=== PATIENT | female | born 1995 | race African-American/Black ===

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

== ENCOUNTER 2017-04-07 17:23 | Emergency (ER) | payer OTHER ==
[2017-04-07] MEDS ORDERED: SODIUM CHLORIDE 0.9% 500 ML IV STA (17:39)
--- NOTE | 2017-04-07 17:48 | ED ---
Abdominal Pain HPI - General Chief Complaint: Abdominal Pain Stated Complaint: Abdominal pain Time Seen by Provider: 04/07/17 17:35 Source: patient, RN notes reviewed Mode of arrival: ambulatory Limitations: no limitations - History of Present Illness Initial Comments: 21-year-old female presents emergency Department chief complaint of nausea abdominal discomfort. Patient states that she has on-and-off discomfort primarily epigastric region. Patient states that she is having normal bowel movements she's had some nausea and one episode of vomiting. Patient states her last menstrual cycle was in February she is concerned about possible she denies any vaginal bleeding or vaginal discharge. She's had no prior pregnancies. Patient reports no fever no chills denies chest pain or shortness of breath. - Related Data Previous Rx's Medication Instructions Recorded Omeprazole 40 mg PO DAILY #14 capsule. 04/07/17 Ondansetron Odt [Zofran Odt] 4 mg PO Q8HR PRN #10 tab 04/07/17 Allergies Allergy/AdvReac Type Severity Reaction Status Date / Time No Known Allergies Allergy Verified 04/07/17 17:41 Review of Systems ROS Statement: Those systems with pertinent positive or pertinent negative responses have been documented in the HPI. ROS Other: All systems not noted in ROS Statement are negative. Past Medical History Past Medical History: Asthma History of Any Multi-Drug Resistant Organisms: None Reported Past Surgical History: No Surgical Hx Reported Past Psychological History: No Psychological Hx Reported Smoking Status: Current every day smoker Past Alcohol Use History: None Reported Past Drug Use History: None Reported General Exam Limitations: no limitations General appearance: alert, in no apparent distress Head exam: Present: atraumatic, normocephalic, normal inspection Eye exam: Present: normal appearance, PERRL, EOMI. Absent: scleral icterus, conjunctival injection, periorbital swelling Neck exam: Present: normal inspection, full ROM. Absent: tenderness, meningismus, lymphadenopathy Respiratory exam: Present: normal lung sounds bilaterally. Absent: respiratory distress, wheezes, rales, rhonchi, stridor Cardiovascular Exam: Present: regular rate, normal rhythm, normal heart sounds. Absent: systolic murmur, diastolic murmur, rubs, gallop, clicks Back exam: Absent: CVA tenderness (R), CVA tenderness (L) Neurological exam: Present: alert Skin exam: Present: warm, dry, intact, normal color. 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 Patient's labwork shows mild elevated liver function though she may just have a viral illness. Patient be discharged on omeprazole for her gastritis, Zofran as needed for nausea. Patient is not and which this was a concern for patient. - Lab Data Result diagrams: 04/07/17 18:08 04/07/17 18:08 Lab Results 04/07/17 04/07/17 04/07/17 Range/Units 17:45 17:45 18:08 WBC (4.0-11.0) k/uL RBC (3.80-5.40) m/uL Hgb (11.4-16.0) gm/dL Hct (34.0-46.0) % MCV (80.0-100.0) fL MCH (25.0-35.0) pg MCHC (31.0-37.0) g/dL RDW (11.5-15.5) % Plt Count (150-450) k/uL Neutrophils % % Lymphocytes % % Monocytes % % Eosinophils % % Basophils % % Neutrophils # (1.3-7.7) k/uL Lymphocytes # (1.0-4.8) k/uL Monocytes # (0-1.0) k/uL Eosinophils # (0-0.7) k/uL Basophils # (0-0.2) k/uL Hypochromasia Microcytosis Sodium 140 (137-145) mmol/L Potassium 4.0 (3.5-5.1) mmol/L Chloride 101 (98-107) mmol/L Carbon Dioxide 24 (22-30) mmol/L Anion Gap 15 mmol/L BUN 4 L (7-17) mg/dL Creatinine 0.60 (0.52-1.04) mg/dL Est GFR (MDRD) Af Amer >60 (>60 ml/min/1.73 sqM) Est GFR (MDRD) Non-Af >60 (>60 ml/min/1.73 sqM) Glucose 99 (74-99) mg/dL Calcium 10.3 H (8.4-10.2) mg/dL Total Bilirubin 0.3 (0.2-1.3) mg/dL AST 44 H (14-36) U/L ALT 47 (9-52) U/L Alkaline Phosphatase 203 H (38-126) U/L Total Protein 8.8 H (6.3-8.2) g/dL Albumin 4.9 (3.5-5.0) g/dL Amylase 100 (30-110) U/L Lipase 125 (23-300) U/L Urine Color Colorless Urine Appearance Clear (Clear) Urine pH 7.0 (5.0-8.0) Ur Specific [place] 1.002 (1.001-1.035) Urine Protein Negative (Negative) Urine Glucose (UA) Negative (Negative) Urine Ketones Negative (Negative) Urine Blood Negative (Negative) Urine Nitrite Negative (Negative) Urine Bilirubin Negative (Negative) Urine Urobilinogen <2.0 (<2.0) mg/dL Ur Leukocyte Esterase Negative (Negative) Urine HCG, Qual Not Detected (Not Detectd) 04/07/17 Range/Units 18:08 WBC 5.8 (4.0-11.0) k/uL RBC 5.14 (3.80-5.40) m/uL Hgb 11.2 L (11.4-16.0) gm/dL Hct 38.1 (34.0-46.0) % MCV 74.1 L (80.0-100.0) fL MCH 21.9 L (25.0-35.0) pg MCHC 29.5 L (31.0-37.0) g/dL RDW 15.7 H (11.5-15.5) % Plt Count 375 (150-450) k/uL Neutrophils % 62 % Lymphocytes % 26 % Monocytes % 4 % Eosinophils % 4 % Basophils % 1 % Neutrophils # 3.6 (1.3-7.7) k/uL Lymphocytes # 1.5 (1.0-4.8) k/uL Monocytes # 0.2 (0-1.0) k/uL Eosinophils # 0.3 (0-0.7) k/uL Basophils # 0.0 (0-0.2) k/uL Hypochromasia Marked Microcytosis Slight Sodium (137-145) mmol/L Potassium (3.5-5.1) mmol/L Chloride (98-107) mmol/L Carbon Dioxide (22-30) mmol/L Anion Gap mmol/L BUN (7-17) mg/dL Creatinine (0.52-1.04) mg/dL Est GFR (MDRD) Af Amer (>60 ml/min/1.73 sqM) Est GFR (MDRD) Non-Af (>60 ml/min/1.73 sqM) Glucose (74-99) mg/dL Calcium (8.4-10.2) mg/dL Total Bilirubin (0.2-1.3) mg/dL AST (14-36) U/L ALT (9-52) U/L Alkaline Phosphatase (38-126) U/L Total Protein (6.3-8.2) g/dL Albumin (3.5-5.0) g/dL Amylase (30-110) U/L Lipase (23-300) U/L Urine Color Urine Appearance (Clear) Urine pH (5.0-8.0) Ur Specific [place] (1.001-1.035) Urine Protein (Negative) Urine Glucose (UA) (Negative) Urine Ketones (Negative) Urine Blood (Negative) Urine Nitrite (Negative) Urine Bilirubin (Negative) Urine Urobilinogen (<2.0) mg/dL Ur Leukocyte Esterase (Negative) Urine HCG, Qual (Not Detectd) Disposition Clinical Impression: Abdominal pain, Gastritis Disposition: HOME SELF-CARE Condition: Stable Instructions: Gastritis (ED), Abdominal Pain (ED) Additional Instructions: Please return to the Emergency Department if symptoms worsen or any other concerns. Prescriptions: Omeprazole 40 mg PO DAILY #14 capsule. Ondansetron Odt [Zofran Odt] 4 mg PO Q8HR PRN #10 tab PRN Reason: Nausea Referrals: Kirsty Wayne MD [Primary Care Provider] - 1-2 days Time of Disposition: 20:19
[2017-04-07 18:10] LABS: Appearance,Urine Clear (Clear); Bilirubin,Urine Negative (Negative); Blood,Urine Negative (Negative); Color,Urine Colorless; Glucose,Urine (UA) Negative (Negative); Ketones,Urine Negative (Negative); Leukocyte Esterase,Urine Negative (Negative); Nitrite,Urine Negative (Negative); Protein,Urine Negative (Negative); Specific Gravity,Urine 1.002 (1.001-1.035); Urobilinogen,Urine <2.0 mg/dL (<2.0)
[2017-04-07 18:21] LABS: Basophils % (A) 1 %; Eosinophils # (A) 0.3 k/uL (0-0.7); Eosinophils % (A) 4 %; HCT 38.1 % (34.0-46.0); HGB 11.2 gm/dL (11.4-16.0); Hypochromasia Marked; Lymphocytes # (A) 1.5 k/uL (1.0-4.8); Lymphocytes % (A) 26 %; MCH 21.9 pg (25.0-35.0); MCHC 29.5 g/dL (31.0-37.0); MCV 74.1 fL (80.0-100.0); Mean Platelet Volume 7.2; Microcytosis Slight; Monocytes # (A) 0.2 k/uL (0-1.0); Monocytes % (A) 4 %; Neutrophils # (A) 3.6 k/uL (1.3-7.7); Neutrophils % (A) 62 %; Platelet Count 375 k/uL (150-450); RBC 5.14 m/uL (3.80-5.40); RDW 15.7 % (11.5-15.5); WBC 5.8 k/uL (4.0-11.0)
[2017-04-07 18:38] LABS: ALT 47 U/L (9-52); AST 44 U/L (14-36); Albumin 4.9 g/dL (3.5-5.0); Alkaline Phosphatase 203 U/L (38-126); Amylase 100 U/L (30-110); Anion Gap 15 mmol/L; Blood Urea Nitrogen 4 mg/dL (7-17); Calcium 10.3 mg/dL (8.4-10.2); Carbon Dioxide 24 mmol/L (22-30); Chloride 101 mmol/L (98-107); Glucose 99 mg/dL (74-99); Lipase 125 U/L (23-300); Sodium 140 mmol/L (137-145); Total Bilirubin 0.3 mg/dL (0.2-1.3); Total Protein 8.8 g/dL (6.3-8.2)
--- NOTE | 2017-04-07 19:59 | US ---
EXAMINATION TYPE: US abdomen limited DATE OF EXAM: 04/07/2017 COMPARISON: NONE CLINICAL HISTORY: Pain. RUQ pain EXAM MEASUREMENTS: Liver Length: 15.6 cm Gallbladder Wall: 0.2 cm CBD: 0.29 cm Right Kidney: 9.6 x 4.1 x 4.2 cm Pancreas: wnl Liver: wnl Gallbladder: No stones seen. Appears to have a fold. Evidence for sonographic Burnham's sign: No CBD: wnl Right Kidney: No hydronephrosis or masses seen IMPRESSION: Negative right upper quadrant abdominal sonogram. No gallstones or dilated ducts.
[2017-04-07 20:30] VITALS: BP 114/76; PULSE 71; RESP 16; TEMP 98.3
== END 2017-04-07 20:35 | disposition home or self-care (01) ==
LOC: EC 17:23
DX: K29.70 Gastritis, unspecified, without bleeding (principal); F17.200 Nicotine dependence, unspecified, uncomplicated
CPT/HCPCS: 36415; 76705; 80053; 81003; 81025; 82150; 83690; 85025; 96360; 96361; 99284

== ENCOUNTER 2017-06-10 00:54 | Emergency (ER) | payer OTHER ==
[2017-06-10 00:58] VITALS: RESP 18
[2017-06-10] MEDS ORDERED: SODIUM CHLORIDE 0.9% 1,000 ML IV ONE (01:32)
[2017-06-10] MEDS ORDERED: SODIUM CHLORIDE 0.9% 1,000 ML IV SCH (01:45)
[2017-06-10 02:21] LABS: Anisocytosis Slight; Basophils % (A) 1 %; Eosinophils # (A) 0.3 k/uL (0-0.7); Eosinophils % (A) 5 %; HGB 10.4 gm/dL (11.4-16.0); Hypochromasia Moderate; Lymphocytes # (A) 1.9 k/uL (1.0-4.8); Lymphocytes % (A) 34 %; MCH 22.4 pg (25.0-35.0); MCHC 30.6 g/dL (31.0-37.0); MCV 73.2 fL (80.0-100.0); Mean Platelet Volume 7.4; Microcytosis Moderate; Monocytes # (A) 0.4 k/uL (0-1.0); Monocytes % (A) 7 %; Neutrophils # (A) 2.7 k/uL (1.3-7.7); Neutrophils % (A) 50 %; Platelet Count 378 k/uL (150-450); RBC 4.65 m/uL (3.80-5.40); RDW 17.1 % (11.5-15.5); WBC 5.5 k/uL (4.0-11.0)
[2017-06-10 02:28] LABS: Amorphous Sediment,Urine Rare /hpf; Appearance,Urine Cloudy (Clear); Bacteria,Urine Rare /hpf; Bilirubin,Urine Negative (Negative); Blood,Urine Negative (Negative); Color,Urine Light Yellow; Glucose,Urine (UA) Negative (Negative); Ketones,Urine Negative (Negative); Leukocyte Esterase,Urine Negative (Negative); Mucus,Urine Rare /hpf; Nitrite,Urine Negative (Negative); PH, Urine 7.5 (5.0-8.0); Protein,Urine Negative (Negative); RBC,Urine <1 /hpf (0-5); Specific Gravity,Urine 1.018 (1.001-1.035); Squamous Epithelial Cell,Urine 15 /hpf (0-4); WBC,Urine 2 /hpf (0-5)
[2017-06-10 02:36] LABS: ALT 30 U/L (9-52); AST 37 U/L (14-36); Albumin 4.3 g/dL (3.5-5.0); Alkaline Phosphatase 128 U/L (38-126); Amylase 97 U/L (30-110); Anion Gap 15 mmol/L; Blood Urea Nitrogen 13 mg/dL (7-17); Calcium 9.6 mg/dL (8.4-10.2); Carbon Dioxide 21 mmol/L (22-30); Chloride 104 mmol/L (98-107); Glucose 89 mg/dL (74-99); Lipase 150 U/L (23-300); Potassium 4.5 mmol/L (3.5-5.1); Sodium 140 mmol/L (137-145); Total Bilirubin 0.2 mg/dL (0.2-1.3); Total Protein 7.6 g/dL (6.3-8.2)
--- NOTE | 2017-06-10 02:43 | ED ---
Abdominal Pain HPI - General Chief Complaint: Abdominal Pain Stated Complaint: abd pain, preg length unknown Time Seen by Provider: 06/10/17 01:17 Source: patient, RN notes reviewed, old records reviewed Mode of arrival: ambulatory Limitations: no limitations - History of Present Illness Initial Comments: This patient is a 22-year-old female presents emergency Department stay chief complaint of sharp abdominal pain for the past day. She reports that she is currently . She is on a far long she is urged thinks she is approximately 8 weeks . Last menstrual period was April. She reports no changes in urination or bowel habits. She is not seen an UTILITY SYSTEMS REPAIRER OPERATOR. She relates that she's had no ultrasound or any testing to confirm this . Patient states that she's had no fever or chills. No back pain. - Related Data Home Medications Medication Instructions Recorded Confirmed No Known Home Medications [No 06/10/17 06/10/17 Known Home Medications] Allergies Allergy/AdvReac Type Severity Reaction Status Date / Time No Known Allergies Allergy Verified 06/10/17 00:58 Review of Systems ROS Statement: Those systems with pertinent positive or pertinent negative responses have been documented in the HPI. ROS Other: All systems not noted in ROS Statement are negative. Past Medical History Past Medical History: Asthma History of Any Multi-Drug Resistant Organisms: None Reported Past Surgical History: No Surgical Hx Reported Past Psychological History: No Psychological Hx Reported Smoking Status: Current every day smoker Past Alcohol Use History: Occasional Past Drug Use History: None Reported General Exam - General Exam Comments Initial Comments: Well-appearing 22-year-old female. No acute distress. Limitations: no limitations General appearance: alert, in no apparent distress Head exam: Present: atraumatic, normocephalic, normal inspection Eye exam: Present: normal appearance, PERRL, EOMI. Absent: scleral icterus, conjunctival injection, periorbital swelling ENT exam: Present: normal exam, mucous membranes moist Neck exam: Present: normal inspection. Absent: tenderness, meningismus, lymphadenopathy Respiratory exam: Present: normal lung sounds bilaterally. Absent: respiratory distress, wheezes, rales, rhonchi, stridor Cardiovascular Exam: Present: regular rate, normal rhythm, normal heart sounds. Absent: systolic murmur, diastolic murmur, rubs, gallop, clicks GI/Abdominal exam: Present: soft, normal bowel sounds, other (Patient has no significant tenderness on exam.). Absent: distended, tenderness, guarding, rebound, rigid External exam: Present: normal external exam Speculum exam: Present: normal speculum exam. Absent: erythema, vaginal discharge By manual exam: Present: normal by manual exam. Absent: cervical motion tenderness, adnexal tenderness Extremities exam: Present: normal inspection, full ROM, normal capillary refill. Absent: tenderness, pedal edema, joint swelling, calf tenderness Back exam: Present: normal inspection Neurological exam: Present: alert, oriented X3, CN II-XII intact Psychiatric exam: Present: normal affect, normal mood Skin exam: Present: warm, dry, intact, normal color. Absent: rash Course Vital Signs 06/10/17 06/10/17 00:55 03:54 Temperature 98 F 98.2 F Pulse Rate 97 82 Respiratory 18 18 Rate Blood Pressure 117/68 124/59 O2 Sat by Pulse 97 100 Oximetry Medical Decision Making - Medical Decision Making This patient is a 22-year-old female presents emergency department today complaining of abdominal pain. She does not know how far along she is in . She has no significant tenderness on exam. Patietn has Is a positive blood type. HCG Quant is 190. White blood count 5.5. Hemoglobin 10.4. Ultrasound was performed. Ultrasound shows a complex mass in the left adnexal region that measures 17 x 12 mm with vascularity. Suspicious for an ectopic . The uterus is empty. Discussed with Dr. Antony. He will discuss with on-call UTILITY SYSTEMS REPAIRER OPERATOR. Case was discussed with Dr. Alan. Dr. Alan recommends to was repeat hCG in 2 days. This could just be a complex cyst vs the possibility of an ectopic with low HCG. We will recheck her hCG in 2 days and she can follow-up with Dr. Alan or if she prefers Dr. Hernandez. We will hold off on methotrexate at this time. Patient agrees to repeat blood work. She continue dto state that she did not believe the US report , and does not think she has a possible ectopic. She also continues to states that she thinks she is 8 weeks . She does agree to follow up with OBGYN and repeat blood work. - Lab Data Result diagrams: 06/10/17 01:23 06/10/17 01:23 Lab Results 04/08/2206/10/17 06/10/17 Range/Units 01:23 01:23 01:23 WBC 5.5 (4.0-11.0) k/uL RBC 4.65 (3.80-5.40) m/uL Hgb 10.4 L (11.4-16.0) gm/dL Hct 34.0 (34.0-46.0) % MCV 73.2 L (80.0-100.0) fL MCH 22.4 L (25.0-35.0) pg MCHC 30.6 L (31.0-37.0) g/dL RDW 17.1 H (11.5-15.5) % Plt Count 378 (150-450) k/uL Neutrophils % 50 % Lymphocytes % 34 % Monocytes % 7 % Eosinophils % 5 % Basophils % 1 % Neutrophils # 2.7 (1.3-7.7) k/uL Lymphocytes # 1.9 (1.0-4.8) k/uL Monocytes # 0.4 (0-1.0) k/uL Eosinophils # 0.3 (0-0.7) k/uL Basophils # 0.0 (0-0.2) k/uL Hypochromasia Moderate Anisocytosis Slight Microcytosis Moderate Sodium 140 (137-145) mmol/L Potassium 4.5 (3.5-5.1) mmol/L Chloride 104 (98-107) mmol/L Carbon Dioxide 21 L (22-30) mmol/L Anion Gap 15 mmol/L BUN 13 (7-17) mg/dL Creatinine 0.60 (0.52-1.04) mg/dL Est GFR (CKD-EPI)AfAm >90 (>60 ml/min/1.73 sqM) Est GFR (CKD-EPI)NonAf >90 (>60 ml/min/1.73 sqM) Glucose 89 (74-99) mg/dL Calcium 9.6 (8.4-10.2) mg/dL Total Bilirubin 0.2 (0.2-1.3) mg/dL AST 37 H (14-36) U/L ALT 30 (9-52) U/L Alkaline Phosphatase 128 H (38-126) U/L Total Protein 7.6 (6.3-8.2) g/dL Albumin 4.3 (3.5-5.0) g/dL Amylase 97 (30-110) U/L Lipase 150 (23-300) U/L HCG, Quant 190.7 mIU/mL Urine Color Urine Appearance (Clear) Urine pH (5.0-8.0) Ur Specific [place] (1.001-1.035) Urine Protein (Negative) Urine Glucose (UA) (Negative) Urine Ketones (Negative) Urine Blood (Negative) Urine Nitrite (Negative) Urine Bilirubin (Negative) Urine Urobilinogen (<2.0) mg/dL Ur Leukocyte Esterase (Negative) Urine RBC (0-5) /hpf Urine WBC (0-5) /hpf Ur Squamous Epith Cells (0-4) /hpf Amorphous Sediment (None) /hpf Urine Bacteria (None) /hpf Urine Mucus (None) /hpf Trichomonas Ag (Rapid) (Negative) Blood Type A Positive Blood Type Recheck No 06/10/17 06/10/17 Range/Units 01:23 03:18 WBC (4.0-11.0) k/uL RBC (3.80-5.40) m/uL Hgb (11.4-16.0) gm/dL Hct (34.0-46.0) % MCV (80.0-100.0) fL MCH (25.0-35.0) pg MCHC (31.0-37.0) g/dL RDW (11.5-15.5) % Plt Count (150-450) k/uL Neutrophils % % Lymphocytes % % Monocytes % % Eosinophils % % Basophils % % Neutrophils # (1.3-7.7) k/uL Lymphocytes # (1.0-4.8) k/uL Monocytes # (0-1.0) k/uL Eosinophils # (0-0.7) k/uL Basophils # (0-0.2) k/uL Hypochromasia Anisocytosis Microcytosis Sodium (137-145) mmol/L Potassium (3.5-5.1) mmol/L Chloride (98-107) mmol/L Carbon Dioxide (22-30) mmol/L Anion Gap mmol/L BUN (7-17) mg/dL Creatinine (0.52-1.04) mg/dL Est GFR (CKD-EPI)AfAm (>60 ml/min/1.73 sqM) Est GFR (CKD-EPI)NonAf (>60 ml/min/1.73 sqM) Glucose (74-99) mg/dL Calcium (8.4-10.2) mg/dL Total Bilirubin (0.2-1.3) mg/dL AST (14-36) U/L ALT (9-52) U/L Alkaline Phosphatase (38-126) U/L Total Protein (6.3-8.2) g/dL Albumin (3.5-5.0) g/dL Amylase (30-110) U/L Lipase (23-300) U/L HCG, Quant mIU/mL Urine Color Light Yellow Urine Appearance Cloudy H (Clear) Urine pH 7.5 (5.0-8.0) Ur Specific [place] 1.018 (1.001-1.035) Urine Protein Negative (Negative) Urine Glucose (UA) Negative (Negative) Urine Ketones Negative (Negative) Urine Blood Negative (Negative) Urine Nitrite Negative (Negative) Urine Bilirubin Negative (Negative) Urine Urobilinogen 2.0 (<2.0) mg/dL Ur Leukocyte Esterase Negative (Negative) Urine RBC <1 (0-5) /hpf Urine WBC 2 (0-5) /hpf Ur Squamous Epith Cells 15 H (0-4) /hpf Amorphous Sediment Rare H (None) /hpf Urine Bacteria Rare H (None) /hpf Urine Mucus Rare H (None) /hpf Trichomonas Ag (Rapid) Negative (Negative) Blood Type Blood Type Recheck - Radiology Data Radiology results: report reviewed Complex mass in left adnexal region measures 17 by 12 mm. Suspcious for ectopic . Uterus is empty. Read by Dr. Asif. Disposition Clinical Impression: Early stage of , Abdominal pain Disposition: HOME SELF-CARE Condition: Good Instructions: Ectopic (ED), Abdominal Pain in (ED) Additional Instructions: Patient instructed repeat blood work in approximately 2 days to determine the change in blood work her hormone. Follow-up promptly with UTILITY SYSTEMS REPAIRER OPERATOR in regards to results. Return to the emergency department if any alarming signs or symptoms occur. Referrals: Kirsty Wayne MD [Primary Care Provider] - 1-2 days Stacey Alan DO [Doctor of Osteopathic Medicine] - 1-2 days Qian Hernandez DO [Doctor of Osteopathic Medicine] - 1-2 days Time of Disposition: 03:30
[2017-06-10 02:52] LABS: HCG,Quantitative Serum 190.7 mIU/mL
--- NOTE | 2017-06-10 02:53 | US ---
EXAMINATION TYPE: Transabdominal DATE OF EXAM: 06/07/17 COMPARISON: NONE CLINICAL HISTORY: Pain. Pain EXAM PERFORMED: Transvaginal (TV) and Transabdominal (TA) EXAM MEASUREMENTS: GESTATIONAL AGE / DATING Physician Established: Not yet established Dates by LMP: ( 8 weeks/4 days) EDC: 01/16/2018 Dates by First Scan: No previous this is first scan Dates by Current Scan for: Unable to date by today's study MATERNAL ANATOMY Uterus: 9.7 x 4.6 x 6.6 cm Right Ovary: 2.6 x 1.3 x 2.2 cm Left Ovary: 3.0 x 1.7 x 1.5 cm Post CDS / Adnexa: Fluid seen and a solid mass with a complex area within adjacent to left ovary shantal uring 1.7 x 1.2 x 1.6cm with vascularity suggestive of possible ectopic. Presence of free fluid: Yes GESTATION / SURVEY IUP: No IUP seen at this time Nuchal Translucency 10-14wks (normal less than 3mm): Beta HcG (if available): Not available at this time Solid mass with complex area within adjacent to left ovary measuring 1.7 x 1.2 x 1.6 cm with vascular ity suggestive of possible ectopic. IMPRESSION: Complex mass in the left adnexal region that measures 17 x 12 mm with vascularity. This is suspicious for ectopic . Uterus is empty. This exam was discussed with a emergency physician at 2:50 AM.
[2017-06-10 03:55] VITALS: BP 124/59; PULSE 82; TEMP 98.2
[2017-06-12 07:13] LABS: N. gonorrhoeae,PCR Negative (Neg,Equiv); Neisseria Source Vagina
[2017-06-13 10:56] LABS: C. trachomatis,PCR Negative (Neg,Equiv); Chlamydia trachomatis Source Vagina
== END 2017-06-10 03:56 | disposition home or self-care (01) ==
LOC: EC 00:54
DX: O99.89 Other specified diseases and conditions complicating pregnancy, childbirth and the puerperium (principal); R10.9 Unspecified abdominal pain; O99.331 Smoking (tobacco) complicating pregnancy, first trimester; F17.200 Nicotine dependence, unspecified, uncomplicated; Z3A.08 8 weeks gestation of pregnancy
CPT/HCPCS: 36415; 76801; 76817; 80053; 81001; 82150; 83690; 84702; 85025; 86900; 86901; 87070; 87086; 87205; 87491; 87591; 87808; 96360; 99284

== ENCOUNTER → 2017-06-12 | Outpatient (CLI) | payer OTHER | END | disposition home or self-care (01) | LOC: LABMAIN 10:54 | PROVIDERS: ATTEND Physician Assistant Medical | DX: O20.0 Threatened abortion (principal); Z3A.00 Weeks of gestation of pregnancy not specified | CPT/HCPCS: 36415; 84702 ==

== ENCOUNTER 2017-07-12 14:15 | Emergency (ER) | payer OTHER ==
[2017-07-12 14:25] VITALS: RESP 18; TEMP 98
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
--- NOTE | 2017-07-12 16:35 | US ---
EXAMINATION TYPE: Transabdominal DATE OF EXAM: 06/07/17 COMPARISON: NONE CLINICAL HISTORY: Pain. Bleeding x 1 day, 1 EXAM PERFORMED: Transabdominal (TA) EXAM MEASUREMENTS: GESTATIONAL AGE / DATING Physician Established: Not established yet Dates by LMP: (12 weeks/2 days) EDC: 01/22/2018 Dates by First Scan: Unable to date by 1st scan Dates by Current Scan for: ( 8 weeks/6 days) EDC: 02/15/2018 MATERNAL ANATOMY Uterus: 9.3 x 7.1 x 8.4cm Right Ovary: 2.8 x 1.7 x 2.2cm Left Ovary: 3.1 x 1.6 x 1.6cm Post CDS / Adnexa: small amount of free fluid in posterior cul de sac Presence of free fluid: yes Presence of corpus luteal cyst: not seen Presence of subchorionic bleed: no GESTATION / SURVEY CRL: 2.2cm (8 weeks/6 days) Yolk Sac (normal less than 6mm): 4.0mm Heart Rate: 175 bpm Rhythm: Normal IUP: Viable IUP Date of LMP: 04/17/2017 Beta HcG (if available): Not available at time of exam IMPRESSION: Viable single IUP measuring 8 weeks 6 days with a heart rate of 175bpm and an estimated delivery date of 02/15/2018.
[2017-07-12 17:02] LABS: Appearance,Urine Cloudy (Clear); Bilirubin,Urine Negative (Negative); Blood,Urine Moderate (Negative); Color,Urine Yellow; Glucose,Urine (UA) Negative (Negative); Hyaline Casts,Urine 3 /lpf (0-2); Ketones,Urine Negative (Negative); Leukocyte Esterase,Urine Small (Negative); Mucus,Urine Moderate /hpf; Nitrite,Urine Negative (Negative); PH, Urine 6.5 (5.0-8.0); Protein,Urine Trace (Negative); RBC,Urine 3 /hpf (0-5); Specific Gravity,Urine 1.021 (1.001-1.035); Squamous Epithelial Cell,Urine 27 /hpf (0-4); Urobilinogen,Urine <2.0 mg/dL (<2.0); WBC,Urine 3 /hpf (0-5)
[2017-07-12 17:32] VITALS: BP 121/55; PULSE 55
== END 2017-07-12 17:31 | disposition home or self-care (01) ==
LOC: EC 14:15
DX: O20.0 Threatened abortion (principal); O99.331 Smoking (tobacco) complicating pregnancy, first trimester; F17.200 Nicotine dependence, unspecified, uncomplicated; Z3A.08 8 weeks gestation of pregnancy
CPT/HCPCS: 36415; 76801; 81001; 84702; 99284

== ENCOUNTER → 2017-11-02 | Outpatient (CLI) | payer OTHER ==
[2017-11-02 12:37] LABS: Anisocytosis Slight; HCT 32.1 % (34.0-46.0); HGB 10.3 gm/dL (11.4-16.0); MCHC 32.1 g/dL (31.0-37.0); MCV 87.2 fL (80.0-100.0); Mean Platelet Volume 7.5; Platelet Count 241 k/uL (150-450); RBC 3.69 m/uL (3.80-5.40); RDW 16.9 % (11.5-15.5); WBC 6.5 k/uL (4.0-11.0)
== END | disposition home or self-care (01) ==
LOC: LABWHC1 11:26
PROVIDERS: ATTEND Obstetrics & Gynecology
DX: Z34.02 Encounter for supervision of normal first pregnancy, second trimester (principal); Z3A.00 Weeks of gestation of pregnancy not specified
CPT/HCPCS: 36415; 82950; 85027

== ENCOUNTER 2017-11-03 13:32 | Outpatient (CLI) | payer OTHER ==
[2017-11-03 14:45] LABS: Amorphous Sediment,Urine Rare /hpf; Appearance,Urine Cloudy (Clear); Bilirubin,Urine Negative (Negative); Blood,Urine Negative (Negative); Color,Urine Yellow; Glucose,Urine (UA) Negative (Negative); Ketones,Urine Negative (Negative); Leukocyte Esterase,Urine Negative (Negative); Mucus,Urine Rare /hpf; Nitrite,Urine Negative (Negative); Protein,Urine Negative (Negative); Specific Gravity,Urine 1.016 (1.001-1.035); Urobilinogen,Urine <2.0 mg/dL (<2.0)
[2017-11-03 14:55] VITALS: BP 115/56; PULSE 78; RESP 18; TEMP 99
--- NOTE | 2017-11-20 09:20 | P.MSEPDOC ---
Presenting Problems - Arrival Data Date of Arrival on Unit: 11/03/17 Time of Arrival on Unit: 13:30 Mode of Transport: Ambulatory - Complaint OB-Reason for Admission/Chief Complaint: Other Comment: poss labor at 25 weeks- questionable contractions while at [facility] Medical History - Information : 1 Para: 0 Term: 0 : 0 Abortions: Spontaneous or Elective: 0 Number of Living Children: 0 - Gestational Age Gestational Age by KIKE (wks/days): 25 Weeks and 1 Days Review of Systems - Review of Systems Constitutional: No problems Breast: No problems ENT: No problems Cardiovascular: No problems Respiratory: No problems Gastrointestinal: No problems Genitourinary: No problems Musculoskeletal: No problems Neurological: No problems Skin: No problems Vital Signs - Temperature Temperature: 99.0 F Temperature Source: Oral - Pulse Right Brachial Pulse Rate: 78 Pulse Assessment Method: Automatic Cuff - Respirations Respiratory Rate: 18 Oxygen Delivery Method: Room Air O2 Sat by Pulse Oximetry: 98 - Blood Pressure Right Arm Blood Pressure: 115/56 Blood Pressure Mean: 75 Blood Pressure Source: Automatic Cuff Medical Screen Scoring (Pre) - Cervical Exam Dilation: 0 cm = 0 Membranes: Intact - Uterine Contractions Frequency: N/A Duration: N/A - Maternal Vital Signs Maternal Temperature: N/A Maternal Blood Pressure: N/A Signs of Preeclampsia: N/A Maternal Respirations: N/A - Pain Assessment Pain Scale Used: Numeric (1 - 10) Pain Intensity: 8 Pain Management Goal: 3 Pain Description: *Acute Pain Frequency: Intermittent Pain Duration Units: Hours Pain Aggravating Factors: Activity, Standing Non-Pharmacological Interventions: Darkened Room, Position/Reposition - Maternal Trauma Maternal Trauma: N/A - Assessment Baseline FHR: 155 Heart Rate - NICHD Category: Category I (Normal) = 0 Position: N/A Station: N/A - Total Score Total Score (Pre): 0 - Level of Risk Level of Risk: Low (0-5) Physician Notification (Pre) - Physician Notified Spoke With: juliocesar - Notification Comment Comment: discharge home. result of ua to dr. stefanie larson next sched appt Medical Screen Scoring (Post) - Cervical Exam Dilation: 0 cm = 0 Membranes: Intact - Uterine Contractions Frequency: N/A Duration: N/A Intensity: N/A - Maternal Vital Signs Maternal Temperature: N/A Maternal Blood Pressure: N/A Signs of Preeclampsia: N/A Maternal Respirations: N/A - Pain Assessment Pain Scale Used: Numeric (1 - 10) Pain Intensity: 5 Pain Description: *Acute Pain Frequency: Intermittent Pain Behavior: None Exhibited, Vocalization Pain Aggravating Factors: Activity, Standing Non-Pharmacological Interventions: Position/Reposition - Maternal Trauma Maternal Trauma: N/A - Assessment Heart Rate - NICHD Category: Category II (Indeterminate) = 3 Position: N/A Station: N/A - Total Score Total Score (Post): 3 - Post Treatment Level of Risk Post Treatment Level of Risk: Low (0-5) Physician Notification (Post) - Physician Notified Physician Notified Date: 11/03/17 Physician Notified Time: 15:09 Spoke With: juliocesar Torres Order Received: Yes - Notification Comment Comment: disch home. to keep next sched appt Disposition - Disposition OB Disposition: Discharge to home Discharge Date: 11/03/17 Discharge Time: 15:10 I agree with the RN Medical Screening Exam: Yes Risk & Benefit of care provided described in d/c instruction: Yes Diagnosis: FALSE LABOR BEFORE 37 COMPLETED WEEKS OF GEST, SECOND TRI
== END 2017-11-03 15:10 | disposition home or self-care (01) ==
LOC: FBPOP 13:32
PROVIDERS: ATTEND Obstetrics & Gynecology
DX: O47.02 False labor before 37 completed weeks of gestation, second trimester (principal); Z3A.25 25 weeks gestation of pregnancy
CPT/HCPCS: 81001; G0463; 99213

== ENCOUNTER 2017-12-09 19:43 | Outpatient (CLI) | payer OTHER ==
--- NOTE | 2017-12-12 07:53 | P.MSEPDOC ---
Presenting Problems - Arrival Data Date of Arrival on Unit: 12/09/17 Time of Arrival on Unit: 19:43 Mode of Transport: Ambulatory Physician Notification (Pre) - Notification Comment Comment: Dr. Hernandez in to see pt, script given for terazol 7. Disposition - Disposition OB Disposition: Discharge to home Discharge Date: 12/09/17 Discharge Time: 20:33 I agree with the RN Medical Screening Exam: Yes Physician's MSE Comment: I saw the patient myself in triage. I believe she has vaginal hailee and gave her a prescription for terazol 7. HEr cervix is closed and thick. Risk & Benefit of care provided described in d/c instruction: Yes Diagnosis: ACUTE VAGINITIS
== END 2017-12-09 20:33 | disposition home or self-care (01) ==
LOC: FBPOP 19:43
PROVIDERS: ATTEND Obstetrics & Gynecology
DX: O99.89 Other specified diseases and conditions complicating pregnancy, childbirth and the puerperium (principal); N76.0 Acute vaginitis; Z3A.00 Weeks of gestation of pregnancy not specified
CPT/HCPCS: 59025; G0463; 99213

== ENCOUNTER 2017-12-27 20:43 | Outpatient (CLI) | payer OTHER ==
[2017-12-27 22:31] VITALS: BP 117/67; PULSE 107; RESP 16; TEMP 97.5
--- NOTE | 2017-12-28 06:12 | P.MSEPDOC ---
Presenting Problems - Arrival Data Date of Arrival on Unit: 12/27/17 Time of Arrival on Unit: 20:43 Mode of Transport: Ambulatory - Complaint OB-Reason for Admission/Chief Complaint: Rule Out PROM Medical History - Information : 1 Para: 0 Term: 0 : 0 Abortions: Spontaneous or Elective: 0 Number of Living Children: 0 - Gestational Age Gestational Age by KIKE (wks/days): 32 Weeks and 6 Days - History Complications: Smoker Review of Systems - Review of Systems Constitutional: No problems Breast: No problems ENT: No problems Cardiovascular: No problems Respiratory: No problems Gastrointestinal: Diarrhea Genitourinary: No problems Musculoskeletal: No problems Neurological: No problems Skin: No problems Vital Signs - Temperature Temperature: 97.5 F Temperature Source: Tympanic - Pulse Right Brachial Pulse Rate: 107 Pulse Assessment Method: Automatic Cuff - Respirations Respiratory Rate: 16 Oxygen Delivery Method: Room Air - Blood Pressure Right Arm Blood Pressure: 117/67 Blood Pressure Mean: 83 Blood Pressure Source: Automatic Cuff Medical Screen Scoring (Pre) - Cervical Exam Dilation: Exam Deferred Effacement: Exam Deferred Membranes: Intact - Uterine Contractions Frequency: N/A Duration: N/A Intensity: N/A - Maternal Vital Signs Maternal Temperature: N/A Maternal Blood Pressure: N/A Signs of Preeclampsia: N/A Maternal Respirations: N/A - Pain Assessment Pain Scale Used: Numeric (1 - 10) Pain Intensity: 0 Pain Management Goal: 0 - Maternal Trauma Maternal Trauma: N/A - Assessment Baseline FHR: 140 Heart Rate - NICHD Category: Category I (Normal) = 0 NST: Reactive Position: N/A Station: N/A - Total Score Total Score (Pre): 0 - Level of Risk Level of Risk: Low (0-5) Physician Notification (Pre) - Physician Notified Physician Notified Date: 12/27/17 Physician Notified Time: 21:15 Physician/Practitioner Notifed:: Dr. Marx Spoke With: Dr. Marx New Order Received: Yes - Notification Comment Comment: d/c home Disposition - Disposition OB Disposition: Discharge to home Discharge Date: 12/27/17 Discharge Time: 21:15 I agree with the RN Medical Screening Exam: Yes Risk & Benefit of care provided described in d/c instruction: Yes Diagnosis: FALSE LABOR BEFORE 37 COMPLETED WEEKS OF GEST, THIRD TRI (This patient presented to labor and delivery with complaints of diarrhea and concern for rupture membranes. Evaluation including amnio sure and nonstress testing was normal without evidence of rupture of membranes. Unfortunately this patient was on pleasant with nursing staff and left before a prolonged evaluation could be done. We did not sign her out AMA because clinically there was no evidence of any maternal or compromise however we had hoped patient was stay longer for prolonged monitoring and evaluation. Patient was instructed follow-up with Dr. Hernandez as scheduled and return if any concerns.)
== END 2017-12-27 21:15 | disposition home or self-care (01) ==
LOC: FBPOP 20:43
PROVIDERS: ATTEND Obstetrics & Gynecology
DX: O47.03 False labor before 37 completed weeks of gestation, third trimester (principal); Z3A.32 32 weeks gestation of pregnancy
CPT/HCPCS: 59025; G0463; 99213

== ENCOUNTER 2018-02-08 10:51 | Outpatient (CLI) | payer OTHER ==
[2018-02-08 11:50] VITALS: BP 127/74; PULSE 84; RESP 16; TEMP 98
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
== END 2018-02-08 13:35 | disposition home or self-care (01) ==
LOC: FBPOP 10:51
PROVIDERS: ATTEND Obstetrics & Gynecology
DX: O99.89 Other specified diseases and conditions complicating pregnancy, childbirth and the puerperium (principal); Z3A.39 39 weeks gestation of pregnancy
CPT/HCPCS: 59025; G0463; 99213

== ENCOUNTER 2018-02-08 16:34 | Inpatient (IN) | payer OTHER ==
[2018-02-08] MEDS ORDERED: METHYLERGONOVINE 0.2 MG/ML 1 ML AMP IM PRN (17:18)
[2018-02-08] MEDS ORDERED: TERBUTALINE 1 MG/ML VIAL SQ PRN (17:18)
[2018-02-08] MEDS ORDERED: CARBOPROST TROMETHAMINE 250 MCG/ML 1 ML AMP IM PRN (17:18)
[2018-02-08] MEDS ORDERED: OXYTOCIN 10 UNIT/ML 1 ML VIAL IM PRN (17:18)
[2018-02-08] MEDS ORDERED: LIDOCAINE 0.5% (PF) 5 MG/ML (50 ML SDV) SQ PRN (17:18)
[2018-02-08] MEDS ORDERED: OXYTOCIN 20 UNITS/1000 ML NS 1,000 ML IV SCH (17:30)
--- NOTE | 2018-02-08 17:49 | P.HPOB ---
History of Present Illness H&P Date: 02/08/18 Chief Complaint: Contractions, spontaneous rupture membranes This is a 22-year-old female 1 para 0 at 39-0/7 weeks with an estimated date of confinement of 02/15/2018, who presents to labor and delivery with complaints of contractions and losing her mucous plug. Upon arrival to labor and delivery she felt a gush of fluid in her car. She has had no complications that she mentions however she did come in this morning for a fall where she hit directly on her belly. At that time she was monitored and had fair variability on her strip. She was discharged home. 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 Review of Systems Constitutional: Denies chills, Denies fever Eyes: denies blurred vision, denies pain Ears, nose, mouth and throat: Denies headache, Denies sore throat Cardiovascular: Denies chest pain, Denies shortness of breath Respiratory: Denies cough Gastrointestinal: Reports abdominal pain (Contractions) Genitourinary: Reports pelvic pain, Reports Musculoskeletal: Reports low back pain Neurological: Denies numbness, Denies weakness Psychiatric: Denies anxiety, Denies depression Past Medical History Past Medical History: Asthma Additional Past Medical History / Comment(s): Anemia History of Any Multi-Drug Resistant Organisms: None Reported Past Surgical History: No Surgical Hx Reported Past Psychological History: No Psychological Hx Reported Smoking Status: Current some day smoker Past Alcohol Use History: None Reported Past Drug Use History: None Reported Medications and Allergies Home Medications Medication Instructions Recorded Confirmed Type Wdu-[id number]-Rxxwf Acid 1 cap PO DAILY 07/12/17 02/08/18 History [-U Capsule (formulary)] Ferrous Sulfate [Feosol] 325 mg PO DAILY 11/03/17 02/08/18 History Allergies Allergy/AdvReac Type Severity Reaction Status Date / Time No Known Allergies Allergy Verified 02/08/18 16:44 Exam Osteopathic Statement: *. No significant issues noted on an osteopathic structural exam other than those noted in the History and Physical/Consult. Vital Signs Temp Resp BP 02/08/18 17:21 97.7 F 16 127/66 Intake and Output 02/08/18 02/08/18 02/08/18 06:59 14:59 22:59 Other: Weight 76.657 kg HEENT: Within normal limits Heart: Regular rate and rhythm Lungs: Clear to auscultation bilaterally Abdomen: Cervix: 4/80%/-1 station. Positive amnisure with meconium fluid noted. heart tones: Variability is average but she is not reactive yet. There are some small variable decelerations noted. Contractions: Every 5-6 minutes Extremities: Negative Homans Assessment and Plan (1) 39 weeks gestation of Current Visit: Yes Status: Acute Code(s): Z3A.39 - 39 WEEKS GESTATION OF SNOMED Code(s): 90131606 (2) Meconium in amniotic fluid Current Visit: Yes Status: Acute Code(s): P96.83 - MECONIUM STAINING SNOMED Code(s): 017435324 (3) Non-reactive NST (non-stress test) Current Visit: Yes Status: Acute Code(s): O28.8 - OTHER ABNORMAL FINDINGS ON SCREENING OF MOTHER SNOMED Code(s): 246870557 Plan: Will admit for labor. Will obtain complete obstetrical ultrasound due to nonreactive NST. As long as heart tones are okay we will give epidural when needed.
[2018-02-08] MEDS: LACTATED RINGERS 1,000 ML IV SCH ×2 (18:38→20:28)
[2018-02-08] MEDS ORDERED: SODIUM CHLORIDE 0.9% 100 ML BAG ONE (18:40)
[2018-02-08] MEDS ORDERED: ROPIVACAINE 5MG/ML 20ML VIAL ONE (18:40)
[2018-02-08] MEDS ORDERED: fentaNYL (PF) 50 MCG/ML 5 ML AMP ONE (18:40)
[2018-02-08 18:41] VITALS: BMI 29.0
[2018-02-08 18:45] LABS: Basophils % (A) 0 %; Eosinophils # (A) 0.2 k/uL (0-0.7); Eosinophils % (A) 2 %; HCT 35.1 % (34.0-46.0); HGB 11.3 gm/dL (11.4-16.0); Lymphocytes # (A) 1.4 k/uL (1.0-4.8); Lymphocytes % (A) 16 %; MCH 28.4 pg (25.0-35.0); MCHC 32.3 g/dL (31.0-37.0); MCV 87.9 fL (80.0-100.0); Monocytes # (A) 0.4 k/uL (0-1.0); Monocytes % (A) 5 %; Neutrophils # (A) 6.8 k/uL (1.3-7.7); Neutrophils % (A) 75 %; Platelet Count 242 k/uL (150-450); RBC 3.99 m/uL (3.80-5.40); RDW 14.7 % (11.5-15.5); WBC 9.1 k/uL (4.0-11.0)
--- NOTE | 2018-02-08 18:57 | US ---
EXAMINATION TYPE: US OB >= 14 wk fetus DATE OF EXAM: 02/08/2018 COMPARISON: None CLINICAL HISTORY: Fall ruptured membranes TECHNIQUE: Transabdominal GESTATIONAL AGE / DATING Physician Established: (39 weeks/0 days) EDC: 02/15/2018 Dates by LMP: Unsure Dates by First Scan: (39 weeks/0 days) EDC: 02/15/2018 Dates by Current Scan: (38 weeks/1 days) EDC: 02/21/2018 Beta HCG (if available): Not available SURVEY IUP: Single PLACENTA: Fundal PREVIA: No previa CORBIN: 9.1 cm Lower end of normal CERVICAL LENGTH (transabdominal: norm > 3.0cm): Unable to visualize due to head BIOMETRY PRESENTATION: Cephalic LIE: Longitudinal BPD: 9.2 cm 37 weeks / 4 days HC: 34.0 cm 39 weeks / 1 days AC: 33.7 cm 37 weeks / 4 days FL: 7.59 cm 38 weeks / 6 days ESTIMATED WEIGHT IN GRAMS: 3384 grams ESTIMATED WEIGHT IN LBS/OZ: 7 lbs. 7 oz. WEIGHT PERCENTAGE BASED ON ESTABLISHED DATES: 45.4% HC/AC: 1.01 Normal FL/AC: 22.51 Normal HEART RATE: 148 bpm RHYTHM: Normal Viable IUP, measurements consistent with dates. IMPRESSION: There is satisfactory growth compared to the first exam of 07/12/2017. There is grade 2 to grade 3 placenta.
--- NOTE | 2018-02-09 00:27 | P.PROBDLV ---
Vaginal Delivery Note - . Vaginal Delivery Note: The patient progressed to complete dilation after oxytocin augmentation of labor and epidural anesthesia. Once reaching complete, she began pushing. Infant's head came to a crown. At this time the heart tones were dipping and the patient was not pushing effectively, therefore a midline episiotomy was cut after anesthetizing with 1% lidocaine. The head delivered immediately after cutting the episiotomy followed by the anterior shoulder. Nose and mouth were bulb suctioned at the perineum due to meconium. SHOE TURNER was present for delivery. The remainder the easily delivered and was placed on mother's abdomen. Cord was clamped and cut and was taken to warmer for evaluation. Brisk cry was noted immediately after delivery. A viable female was noted with scores of 9 at 1 minute and 9 at 5 minutes and weight of 6 lbs. 9 oz. Placenta delivered shortly thereafter, intact, with a three-vessel cord. Placenta was noted to be fairly calcified. Uterus contracted well after oxytocin was given and uterine massage was carried out. Inspection of the perineum revealed a very superficial episiotomy. This area was anesthetized with 1% lidocaine and then sutured with 3-0 Vicryl suture in a running locked fashion. Estimated blood loss was approximately 150 mL's. Both mother and infant are in stable condition.
[2018-02-09] MEDS ORDERED: diphenhydrAMINE 25 MG CAP PO PRN (00:43)
[2018-02-09] MEDS ORDERED: LANOLIN CREAM 5 GM TUBE TOPICAL PRN (00:43)
[2018-02-09] MEDS ORDERED: diphenhydrAMINE 50 MG/ML 1 ML VIAL IVP PRN ×2 (00:43)
[2018-02-09] MEDS ORDERED: WITCH HAZEL 1 EACH MED..PAD TOPICAL PRN (00:43)
[2018-02-09] MEDS ORDERED: BENZOCAINE/MENTHOL SPRAY 1 GM/SPRAY AEROSOL TOPICAL PRN (00:43)
[2018-02-09] MEDS ORDERED: OXYTOCIN 20 UNITS/1000 ML NS 1,000 ML IV SCH (00:43)
[2018-02-09] MEDS ORDERED: HYDROCORTISONE 2.5% RECTAL CREAM 30 GM TUBE RECTAL PRN (00:43)
[2018-02-09] MEDS ORDERED: ACETAMINOPHEN TAB 325 MG TAB PO PRN (00:43)
[2018-02-09] MEDS ORDERED: ZOLPIDEM 5 MG TAB PO PRN (00:43)
[2018-02-09] MEDS ORDERED: SIMETHICONE 80 MG CHEWABLE PO PRN (00:43)
[2018-02-09] MEDS ORDERED: diphenhydrAMINE 50 MG CAP PO PRN (00:43)
[2018-02-09] MEDS: IBUPROFEN 600 MG TAB PO PRN ×3 (06:22→22:35)
[2018-02-09] MEDS: SENNOSIDES-DOCUSATE SODIUM 1 EACH TAB PO SCH ×2 (07:48→19:58)
[2018-02-09] MEDS ORDERED: FERROUS SULFATE 325 MG TAB PO SCH (09:00)
[2018-02-09] MEDS ORDERED: PRENATAL VIT-IRON-FOLIC ACID 1 EACH CAP PO SCH (09:00)
[2018-02-10 01:22] VITALS: PULSE 73; RESP 16
[2018-02-10 06:59] LABS: Basophils % (A) 0 %; Eosinophils # (A) 0.2 k/uL (0-0.7); Eosinophils % (A) 3 %; HCT 32.8 % (34.0-46.0); HGB 10.4 gm/dL (11.4-16.0); Lymphocytes # (A) 1.8 k/uL (1.0-4.8); Lymphocytes % (A) 23 %; MCH 28.8 pg (25.0-35.0); MCHC 31.9 g/dL (31.0-37.0); MCV 90.4 fL (80.0-100.0); Monocytes # (A) 0.4 k/uL (0-1.0); Monocytes % (A) 5 %; Neutrophils # (A) 5.4 k/uL (1.3-7.7); Neutrophils % (A) 67 %; Platelet Count 216 k/uL (150-450); RBC 3.62 m/uL (3.80-5.40); RDW 14.9 % (11.5-15.5); WBC 8.1 k/uL (4.0-11.0)
[2018-02-10] MEDS: SENNOSIDES-DOCUSATE SODIUM 1 EACH TAB PO SCH (08:34)
[2018-02-10 08:45] VITALS: BP 140/90; TEMP 98.2
--- NOTE | 2018-02-10 08:53 | P.DS ---
Providers Date of admission: 02/08/18 16:52 Expected date of discharge: 02/10/18 Attending physician: Qian Hernandez Primary care physician: Stated None - Discharge Diagnosis(es) (1) Normal vaginal delivery Current Visit: Yes Status: Acute Hospital Course: Patient presented with spontaneous rupture membranes. She underwent normal vaginal delivery. Her course was uncomplicated. She'll be discharged home day #1 in stable condition to follow-up with me in 6 weeks. Plan - Discharge Summary Discharge Rx Participant: No New Discharge Prescriptions: New Ibuprofen [Motrin] 600 mg PO Q6HR PRN #30 tab PRN Reason: Mild Pain Or Fever >= 100.5 No Action Usw-Lqhu-Moxxe Acid [-U Capsule (formulary)] 1 cap PO DAILY Ferrous Sulfate [Feosol] 325 mg PO DAILY Discharge Medication List Cqj-Zosj-Pacyx Acid [-U Capsule (formulary)] 1 cap PO DAILY 10/22 [History] Ferrous Sulfate [Feosol] 325 mg PO DAILY 11/03/17 [History] Ibuprofen [Motrin] 600 mg PO Q6HR PRN #30 tab 02/10/18 [Rx] Follow up Appointment(s)/Referral(s): Qian Hernandez DO [Doctor of Osteopathic Medicine] - 6 Weeks Discharge Disposition: HOME SELF-CARE
== END 2018-02-10 10:40 | disposition home or self-care (01) | DRG 807 ==
LOC: FBPOP 16:34 → 4FBP 16:52
PROVIDERS: ADMIT Obstetrics & Gynecology; ATTEND Obstetrics & Gynecology
PROC: 10E0XZZ Delivery of Products of Conception, External Approach (ICD-10-PCS; principal; 2018-02-08)
PROC: 0W8NXZZ Division of Female Perineum, External Approach (ICD-10-PCS; 2018-02-08)
PROC: 00HU33Z Insertion of Infusion Device into Spinal Canal, Percutaneous Approach (ICD-10-PCS; 2018-02-08)
PROC: 3E0R3BZ Introduction of Anesthetic Agent into Spinal Canal, Percutaneous Approach (ICD-10-PCS; 2018-02-08)
DX: O77.0 Labor and delivery complicated by meconium in amniotic fluid (principal); Z37.0 Single live birth; O76 Abnormality in fetal heart rate and rhythm complicating labor and delivery; O99.52 Diseases of the respiratory system complicating childbirth; J45.909 Unspecified asthma, uncomplicated; O99.334 Smoking (tobacco) complicating childbirth; F17.200 Nicotine dependence, unspecified, uncomplicated; Z71.6 Tobacco abuse counseling; O99.02 Anemia complicating childbirth; D64.9 Anemia, unspecified; Z3A.39 39 weeks gestation of pregnancy; Z79.899 Other long term (current) drug therapy; W19.XXXA Unspecified fall, initial encounter
CPT/HCPCS: 76805; 85025; 86850; 86900; 86901; 88307